=== PATIENT | female | born 1950 | race Hispanic/Latino ===

== ENCOUNTER 2020-11-28 12:21 | Emergency (ER) | payer MEDICARE, OTHER ==
[2020-11-28] MEDS ORDERED: HYDROCODONE/ACETAMINOPHEN 5/325 MG TAB ONE (14:06)
== END 2020-11-28 15:31 | disposition home or self-care (01) ==
LOC: EDH 12:21
DX: S73.101A Unspecified sprain of right hip, initial encounter (principal); I25.10 Atherosclerotic heart disease of native coronary artery without angina pectoris; Z87.891 Personal history of nicotine dependence; I10 Essential (primary) hypertension; W18.39XA Other fall on same level, initial encounter; Y93.01 Activity, walking, marching and hiking; Y92.89 Other specified places as the place of occurrence of the external cause; Y99.8 Other external cause status
CPT/HCPCS: 70450; 71250; 72125; 73030; 73521; 93005

== ENCOUNTER → 2021-09-10 | Outpatient (CLI) | payer MEDICARE, OTHER | END | disposition home or self-care (01) | LOC: RAH 14:07 | PROVIDERS: ATTEND Internal Medicine | DX: R01.1 Cardiac murmur, unspecified (principal); Z95.3 Presence of xenogenic heart valve; R55 Syncope and collapse | CPT/HCPCS: 93306; 93356 ==

== ENCOUNTER 2022-07-14 14:29 | Emergency (ER) | payer MEDICARE, OTHER ==
[~2022-07-14] VITALS: Ht 160 cm; Wt 59.0 kg
[2022-07-14] MEDS ORDERED: HYDROCODONE/ACETAMINOPHEN 5/325 MG TAB PO ONE (15:00)
[2022-07-14 15:15] LABS: BASOPHILS % (AUTO) 0.4 % (0.0-5.0); EOSINOPHILS % (AUTO) 2.2 % (0.0-8.0); LYMPHOCYTES % (AUTO) 24.1 % (21.0-51.0); MEAN CORPUSCULAR HEMOGLOBIN 31.4 pg (27.0-33.0); MEAN CORPUSCULAR HGB CONC 33.8 g/dL (32.0-36.0); MEAN CORPUSCULAR VOLUME 92.9 fL (79-99); MONOCYTES % (AUTO) 6.9 % (3.0-13.0); NEUTROPHILS % (AUTO) 66.2 % (40.0-77.0); PLATELET COUNT (AUTO) 251 K/uL (130-400); WHITE BLOOD COUNT (AUTO) 4.9 K/uL (4.8-10.8)
[2022-07-14 15:25] LABS: CREATININE 0.8 mg/dL (0.5-1.5); POTASSIUM 4.1 mmol/L (3.5-5.1)
[2022-07-14 15:30] LABS: ALBUMIN 3.5 g/dL (3.5-5.0); TOTAL PROTEIN, SERUM 7.2 g/dL (6.0-8.3)
[2022-07-14] MEDS ORDERED: CYCL10TA16 PO (16:15)
[2022-07-14] MEDS ORDERED: TRAM1TAB2 PO (16:15)
[2022-07-14 16:20] VITALS: BP 130/86
== END 2022-07-14 16:29 | disposition home or self-care (01) ==
LOC: EDH 14:29
DX: S22.089A Unspecified fracture of T11-T12 vertebra, initial encounter for closed fracture (principal); M54.50 Low back pain, unspecified; G20 Parkinson's disease; Z88.8 Allergy status to other drugs, medicaments and biological substances; Z79.899 Other long term (current) drug therapy; Z98.890 Other specified postprocedural states; W19.XXXA Unspecified fall, initial encounter; Y93.01 Activity, walking, marching and hiking; Y92.89 Other specified places as the place of occurrence of the external cause; Y99.8 Other external cause status
CPT/HCPCS: 36415; 72131; 80053; 84484; 85025

== ENCOUNTER 2022-07-19 17:09 | Emergency (ER) | payer MEDICARE, OTHER ==
[~2022-07-19] VITALS: Ht 162.6 cm; Wt 61.2 kg
[~2022-07-19 17:09] MED LIST: CYCL10TA16 PO; TRAM1TAB2 PO
[2022-07-19 17:10] VITALS: BP 130/52
[2022-07-19] MEDS ORDERED: LIDO1ADH71 TP (20:49)
[2022-07-19] MEDS: KETOROLAC 15MG/ML VIAL (15MG/ML) IM ONE (20:56)
[2022-07-19] MEDS: LIDOCAINE 5% TOPICAL PATCH TP ONE (20:56)
[2022-07-19] MEDS ORDERED: LIDOCAINE 5% TOPICAL PATCH TP ONE (21:00)
== END 2022-07-19 21:00 | disposition home or self-care (01) ==
LOC: EDH 17:09
DX: M54.50 Low back pain, unspecified (principal); G20 Parkinson's disease; Z79.1 Long term (current) use of non-steroidal anti-inflammatories (NSAID); Z88.1 Allergy status to other antibiotic agents; Z85.118 Personal history of other malignant neoplasm of bronchus and lung
CPT/HCPCS: 99283; 96372; J1885

== ENCOUNTER 2023-01-11 17:56 | Emergency (ER) | payer MEDICARE, OTHER ==
[~2023-01-11] VITALS: Ht 157.5 cm; Wt 59.0 kg
[~2023-01-11 17:56] MED LIST changes: +LIDO1ADH71 TP
[2023-01-11 23:38] VITALS: BP 130/78
== END 2023-01-11 23:41 | disposition home or self-care (01) ==
LOC: EDH 17:56
DX: M25.552 Pain in left hip (principal); M25.512 Pain in left shoulder; Z79.899 Other long term (current) drug therapy; W18.39XA Other fall on same level, initial encounter; Y93.89 Activity, other specified; Y92.89 Other specified places as the place of occurrence of the external cause; Y99.8 Other external cause status
CPT/HCPCS: 72190; 73030; 73060; 73090

== ENCOUNTER → 2023-11-17 | Outpatient (CLI) | payer MEDICARE ==
[~2023-11-17] MED LIST changes: +ASCO500T19 PO; +ASPI-1197 PO; +ATOR40TA69 PO; +BACL10TA PO; +CALC-1125 PO; +CARB15DR2 OP; +CARB1TAB35 PO; +CRAN500T4 PO; -CYCL10TA16 PO; +FLAX100031 PO; +FLU15OS OP; +L.AC1CAP6 PO; -LIDO1ADH71 TP; +MV-M1TAB57 PO; +OXYB5TAB20 PO; +POLY119P3 PO; +SERT-440 PO; +TAMS-1 PO; -TRAM1TAB2 PO; +TRAZ-187 PO
== END | disposition home or self-care (01) ==
LOC: RAH 15:56
PROVIDERS: ATTEND Student in an Organized Health Care Education/Training Program
DX: R29.6 Repeated falls (principal)
CPT/HCPCS: 73090; 73110